=== PATIENT | male | born 1960 | race Caucasian/White ===

== ENCOUNTER 2021-07-05 14:26 | Emergency (ER) | payer BC ==
[2021-07-05 16:13] VITALS: BP 110/80; PULSE 57; RESP 20; TEMP 98.3
--- NOTE | 2021-07-05 17:31 | XR ---
EXAMINATION TYPE: XR chest 2V DATE OF EXAM: 07/05/2021 COMPARISON: NONE HISTORY: Shortness of breath. TECHNIQUE: Frontal and lateral views of the chest are obtained. FINDINGS: Mild patchy and strandy opacity in the bilateral lower lungs. No Pleural effusion, or pneu mothorax seen. The cardiac silhouette size is within normal limits. The osseous structures are int act. IMPRESSION: Mild patchy and strandy opacity bilaterally could relate to pneumonia in the appropriate clinical setting.
[2021-07-05] MEDS ORDERED: SODIUM CHLORIDE 0.9% 1,000 ML IV STA (19:57)
--- NOTE | 2021-07-05 19:57 | ED ---
General Adult HPI - General Chief complaint: Recheck/Abnormal Lab/Rx Stated complaint: COVID+, SOB Time Seen by Provider: 07/05/21 19:29 Source: patient Mode of arrival: wheelchair Limitations: no limitations - History of Present Illness Initial comments: 61-year-old male presents to the emergency Department with complaints of fatigue, fever, and diarrhea. States he is Covid positive. Reports symptoms began on Sunday the . States he has not received a monoclonal antibody infusion, nor has he been vaccinated. Patient states he is short of breath with activity but denies chest pain or difficulty breathing at rest. Patient states he was prescribed an albuterol inhaler but is struggling to use it. States he has not taken anything for fever or body aches today. Reports intermittent fevers and chills. Denies abdominal pain, vomiting, dysuria, or hematuria. - Related Data Previous Rx's Medication Instructions Recorded Dexamethasone [Decadron] 6 mg PO DAILY #10 tablet 07/05/21 Allergies Allergy/AdvReac Type Severity Reaction Status Date / Time No Known Allergies Allergy Verified 07/05/21 21:14 Review of Systems ROS Statement: Those systems with pertinent positive or pertinent negative responses have been documented in the HPI. ROS Other: All systems not noted in ROS Statement are negative. Past Medical History Past Medical History: Hypertension Additional Past Medical History / Comment(s): kidney stones History of Any Multi-Drug Resistant Organisms: None Reported Past Surgical History: No Surgical Hx Reported Past Psychological History: No Psychological Hx Reported Smoking Status: Former smoker Past Alcohol Use History: None Reported Past Drug Use History: None Reported General Exam Limitations: no limitations (Well-developed, well-nourished male in no acute distress. Initial temperature 98.3, pulse 57, respirations 20, blood pressure 110/80, pulse ox 94% on room air.) General appearance: alert, in no apparent distress ENT exam: Present: normal exam, normal oropharynx, mucous membranes moist Respiratory exam: Present: normal lung sounds bilaterally. Absent: respiratory distress, wheezes, rales, rhonchi, stridor Cardiovascular Exam: Present: regular rate, normal rhythm, normal heart sounds. Absent: systolic murmur, diastolic murmur, rubs, gallop, clicks GI/Abdominal exam: Present: soft, normal bowel sounds. Absent: distended, tenderness, guarding, rebound, rigid Neurological exam: Present: alert, oriented X3 Skin exam: Present: warm, dry, intact Course Vital Signs 07/05/21 16:06 Temperature 98.3 F Pulse Rate 57 L Respiratory 20 Rate Blood Pressure 110/80 O2 Sat by Pulse 94 L Oximetry Medical Decision Making - Medical Decision Making 61-year-old Covid positive male presents to the emergency department for evaluation. States he was sent over by his primary care provider for a chest x- ray due to concerns of pneumonia. Upon exam, patient is well-appearing. He is afebrile, not tachypneic nor tachycardic. Pulse ox 95-100% on room air. Able to tolerate oral intake. Has had multiple episodes of diarrhea. States his primary care provider prescribed him an albuterol inhaler. Patient is within the window to receive monoclonal antibody infusion. Risks and benefits were discussed at length. Patient declined. Chest x-ray shows mild patchy and strandy opacity bilaterally consistent with Covid pneumonia. Laboratory studies were reviewed and are consistent with viral illness. Patient does have slightly elevated BUN and creatinine, as well as low-sodium consistent with mild de hydration. Patient was given a liter of IV fluids, oral steroid, and Toradol to treat discomfort; improvement upon departure. He'll be discharged home to follow-up with his primary care provider as needed. Oral steroid was prescribed. He is encouraged to continue using his albuterol inhaler. Return parameters were discussed in detail. Patient verbalizes understanding and agrees with this plan. This patient's care was discussed with my attending Dr. Hyman. - Lab Data Result diagrams: 07/05/21 20:00 07/05/21 20:00 Lab Results 07/05/21 07/05/21 Range/Units 20:00 20:00 WBC 3.0 L (3.8-10.6) k/uL RBC 5.20 (4.30-5.90) m/uL Hgb 17.4 (13.0-17.5) gm/dL Hct 47.2 (39.0-53.0) % MCV 90.8 (80.0-100.0) fL MCH 33.5 (25.0-35.0) pg MCHC 36.9 (31.0-37.0) g/dL RDW 12.7 (11.5-15.5) % Plt Count 96 L (150-450) k/uL MPV 9.2 Neutrophils % 65 % Lymphocytes % 23 % Monocytes % 8 % Eosinophils % 0 % Basophils % 1 % Neutrophils # 2.0 (1.3-7.7) k/uL Lymphocytes # 0.7 L (1.0-4.8) k/uL Monocytes # 0.2 (0-1.0) k/uL Eosinophils # 0.0 (0-0.7) k/uL Basophils # 0.0 (0-0.2) k/uL Manual Slide Review Performed Sodium 135 L (137-145) mmol/L Potassium 3.8 (3.5-5.1) mmol/L Chloride 100 (98-107) mmol/L Carbon Dioxide 22 (22-30) mmol/L Anion Gap 13 mmol/L BUN 22 H (9-20) mg/dL Creatinine 1.39 H (0.66-1.25) mg/dL Est GFR (CKD-EPI)AfAm 64 (>60 ml/min/1.73 sqM) Est GFR (CKD-EPI)NonAf 55 (>60 ml/min/1.73 sqM) Glucose 113 H (74-99) mg/dL Calcium 8.6 (8.4-10.2) mg/dL Total Bilirubin 0.8 (0.2-1.3) mg/dL AST 86 H (17-59) U/L ALT 59 H (4-49) U/L Alkaline Phosphatase 96 (38-126) U/L Total Protein 7.2 (6.3-8.2) g/dL Albumin 4.2 (3.5-5.0) g/dL - Radiology Data Radiology results: report reviewed, image reviewed Two-view chest x-ray was obtained. Report was reviewed in its entirety. Impression per Dr. Wright is mild patchy and strandy opacity bilaterally. Could relate to pneumonia in the appropriate clinical setting. Disposition Clinical Impression: COVID-19, Viral pneumonia, Mild dehydration Disposition: HOME SELF-CARE Condition: Stable Instructions (If sedation given, give patient instructions): Coronavirus Disea 2018 (COVID-19) Additional Instructions: May alternate Tylenol or Motrin as needed for fever or body aches. Use his inhaler every 6 hours as needed for shortness of breath or wheezing. Take steroid as directed. Follow-up with her primary care provider for a recheck via video visit or telephone. Return to the emergency department with any new, worsening, or concerning s ymptoms. Prescriptions: Dexamethasone [Decadron] 6 mg PO DAILY #10 tablet Is patient prescribed a controlled substance at d/c from ED?: No Referrals: Gregorio Kwon MD [Primary Care Provider] - 1-2 days Time of Disposition: 22:19
[2021-07-05] MEDS ORDERED: KETOROLAC 30 MG/ML 1 ML VIAL IVP STA (20:00)
[2021-07-05 20:24] LABS: Basophils % (A) 1 %; Eosinophils % (A) 0 %; HCT 47.2 % (39.0-53.0); HGB 17.4 gm/dL (13.0-17.5); Lymphocytes # (A) 0.7 k/uL (1.0-4.8); Lymphocytes % (A) 23 %; MCH 33.5 pg (25.0-35.0); MCHC 36.9 g/dL (31.0-37.0); MCV 90.8 fL (80.0-100.0); Mean Platelet Volume 9.2; Monocytes # (A) 0.2 k/uL (0-1.0); Monocytes % (A) 8 %; Neutrophils % (A) 65 %; RDW 12.7 % (11.5-15.5)
[2021-07-05 20:38] LABS: Albumin 4.2 g/dL (3.5-5.0); Calcium 8.6 mg/dL (8.4-10.2); Potassium 3.8 mmol/L (3.5-5.1); Total Bilirubin 0.8 mg/dL (0.2-1.3); Total Protein 7.2 g/dL (6.3-8.2)
[2021-07-05 21:03] LABS: Platelet Count 96 k/uL (150-450)
[2021-07-05] MEDS ORDERED: dexAMETHasone 2 MG TAB PO STA (21:27)
== END 2021-07-05 22:32 | disposition home or self-care (01) ==
LOC: EC 14:26
DX: U07.1 COVID-19 (principal); J12.82 Pneumonia due to coronavirus disease 2019; E86.0 Dehydration; I10 Essential (primary) hypertension; Z87.891 Personal history of nicotine dependence
CPT/HCPCS: 99284; 96374; 36415; 80053; 85025; 71046; J1885; J8540